=== PATIENT | male | born 1985 | race Caucasian/White ===

== ENCOUNTER 2017-12-01 04:11 | Emergency (ER) | payer OTHER ==
[~2017-12-01] VITALS: Ht 167.6 cm; Wt 59.0 kg
[2017-12-01 04:15] VITALS: BP_SYST 128
[2017-12-01 04:36] VITALS: BP_SYST 125
== END 2017-12-01 04:36 ==
LOC: SED 04:11
DX: Z02.89 Encounter for other administrative examinations (principal)